=== PATIENT | male | born 1965 | race Caucasian/White ===

== ENCOUNTER 2018-12-05 13:21 | Inpatient (IN) | payer OTHER ==
[~2018-12-05] VITALS: Ht 152.4 cm; Wt 62.2 kg
--- NOTE | 2018-12-05 14:12 | NUR ---
PT PRESENTS TO ED WITH LEFT FOOT PAIN S/P INJURING HIS FOOT AT WORK ON 11/24/18. PT STATES THAT HE SAW HIS PMD, "THEY TOLD ME MY FOOT WAS BROKEN AND THAT IT WAS TOO SWOLLEN TO PERFORM SURGERY". PT STATES THAT HE COULD NOT "HANDLE THE PAIN" ANY MORE. PT'S LEFT FOOT IS SWOLLEN WITH ECCHYMOSIS TO HIS TOES. PT STATES THAT HE CANNOT FEEL HIS LAST 3 TOES, UPON CHECKING CAP REFILL ON EACH TOE, PT REPORTS FEELING PAIN. PT IS AAOX4, RESP E/U, NAD NOTED. AWAITING MSE. PT GIVEN "WORKER'S COMP" FORM.
--- NOTE | 2018-12-05 14:20 | NUR ---
PT REPORTS THAT HE ALREADY FILLED OUT A WORKER'S COMP FORM AT THE TIME OF THE INJURY, ON 11/24/18
--- NOTE | 2018-12-05 16:52 | NUR ---
RESIDENT AT BEDSIDE.
--- NOTE | 2018-12-05 17:58 | NUR ---
PT IS AWAKE, AAOX4, RESP E/U. VERBALIZED UNDERSTANDING OF CONTINUATION OF CARE.
--- NOTE | 2018-12-05 18:32 | NUR ---
PT MEDICATED PER ORDER, PT VERBALIZED UNDERSTANDING OF MEDICATION PRIOR TO ADMINISTRATION. PT IS AWAKE AND ALERT, RESP E/U, CALL LIGHT IN REACH. NAD NOTED.
--- NOTE | 2018-12-05 19:22 | NUR ---
RESIDENT AT BEDSIDE. PT CONVERSING APPROPRIATELY, NAD NOTED.
[2018-12-05] MEDS ORDERED: METFORMIN HYDR500 M1 PO (19:44)
--- NOTE | 2018-12-05 19:53 | NUR ---
REPORT CALLED TO ENTRY MANAGER JIMMY TO ASSUME CARE FOR PT.
--- NOTE | 2018-12-05 20:03 | NUR ---
RECEIVED PT FROM ED VIA LATRICIA, CAME IN DUE TO LEFT FOOT PAIN X11 DAYS. AAOX4. DENIES HEADACHE/DIZZINESS. NO SOB NOTED, LUNG SOUNDS CTA. DENIES CHEST PAIN/PRESSURE. DENIES ABDOMINAL DISCOMFORT. BOWEL SOUNDS ACTIVE. VOIDS. ABLE TO MOVE TOES ON THE LLE. W/ SPLINT COVERED W/ RADHA BANDAGE ON LLE. MILD SWELLING NOTED ON THE LEFT TOES. DENIES NUMBNESS/TINGLING SENSATION. IV SITE PATENT AND INTACT. SIDE RAILS UPX2. CALL LIGHT ON REACH. CRUTCHES AT BEDSIDE. ENDORSED TO PRIMARY NURSE YURY FOR CONTINUITY OF CARE
--- NOTE | 2018-12-05 20:08 | NUR ---
PT TAKEN TO MED SURG FLOOR BY EMT ADRIANNE, VIA JAMAL. PT VERBALIZED UNDERSTANDING OF CONTINUATION OF CARE. PT IS AWAKE, AAOX4, RESP E/U, NAD NOTED.
[2018-12-05 20:10] VITALS: BP 133/73
[2018-12-05 20:25] VITALS: Ht 152.4 cm; Wt 62.2 kg
--- NOTE | 2018-12-06 00:40 | NUR ---
PT ASLEEP COMFORTABLY IN BED. NO ACUTE DISTRESS NOTED. EVEN AND UNLABORED RESPIRATIONS ON RA. IV PATENT AND INTACT RUNNING FLUIDS PER EMAR. BED IN LOWEST POSITION. SIDE RAILS UPX2. CALL LIGHT WITHIN REACH. WILL CONTINUE TO MONITOR.
[2018-12-06 05:29] VITALS: BP 119/56
[2018-12-06 06:22] LABS: BASOPHIL % 0.4 % (0-2); PLATELET COUNT 215 x10^3mcL (130-400); RED CELL DISTRIBUTION WIDTH 13.4 % (11.5-14.5)
[2018-12-06 06:29] LABS: microscopic required? NO
--- NOTE | 2018-12-06 06:44 | NUR ---
PT SLEPT COMFORTABLY IN INTERVALS THROUGHOUT THE SHIFT. NO ACUTE CHANGES NOTED. ALL NEEDS TENDED TO AND MET. ALL SCHEDULED MEDICATIONS GIVEN. IV PATENT AND INTACT RUNNING FLUIDS PER EMAR. C/O BLE PAIN MEDICATED PER EMAR. SPLINT AND RADHA WRAP APPLIED TO LLE. CRUTCHES AT BEDSIDE. BED IN LOWEST POSITION. SIDE RAILS UPX2. CALL LIGHT WITHIN REACH. WILL ENDORSE TO ONCOMING SHIFT.
[2018-12-06 07:13] LABS: CALCIUM 8.3 mg/dL (8.5-10.1); CARBON DIOXIDE 28.5 mmol/L (21-32); CHLORIDE SERUM 105 mmol/L (98-107); CREATININE SERUM 1.1 mg/dL (0.7-1.3); GFR1 > 60 mL/min; GLUCOSE SERUM 141 mg/dL (74-106); MAGNESIUM 1.9 mg/dL (1.8-2.4); PHOSPHOROUS 3.8 mg/dL (2.5-4.9); POTASSIUM SERUM 4.1 mmol/L (3.5-5.1); SODIUM SERUM 139 mmol/L (136-145)
[2018-12-06 07:14] LABS: AMPHETAMINE QUAL UR NONE DETECTED (See below)
--- NOTE | 2018-12-06 07:30 | NUR ---
RC'D PT RESTING IN BED WITH NO APPARENT S/S OF DISTRESS. A/A/O/X4, SPEECH CLEAR AND APPROPRIATE. DENIES TERESA/DIZZINESS. MEDUSRG. PT DENIES CP. PALP PULSES, EDEMA NOTED TO LLE. RESPIRATIONS EQUAL AND UNLABORED. LUNGS CTA. ON RA, DENIES SOB. ABDOMEN SOFT AND NONTENDER. ACTIVE BS. DENIES N/V. VOIDS FREEY, DENIES BURNING. GENERALIZED WEAKNESS. LLE LIMTIED ROM, DRESSING IN PLACE. CRUTCHES AT BEDSIDE. PT DENIES PAIN AT THIS TIME. IV PATENT AND INTACT. BED IN LOW POSITION. CALL LIGHT IN REACH. WILL CONT TO MONITOR
[2018-12-06 07:47] LABS: urine erythrocyte NEGATIVE (NEGATIVE)
[2018-12-06 09:18] VITALS: BP 108/61
--- NOTE | 2018-12-06 09:34 | NUR ---
REPORT GIVEN TO KENIA OR NURSE. UPDATED ON PT CURRENT STATUS. ALL QUESTIONS AND CONCERNS ADDRESSED. WILL CONT TO MONITOR
--- NOTE | 2018-12-06 10:12 | NUR ---
PT RESTING IN BED WITH NO APPARENT SIGNS OF DISTRESS. RESPIRATIONS EQUAL AND UNLABORED. ON RA, PT DENIES SOB. PT DENIES PAIN AT THIS TIME. LLE ELEVATED ON PILLOW. BED IN LOWEST POSITION. CALL LIGHT IN REACH. WILL CONT TO MONITOR
--- NOTE | 2018-12-06 11:34 | NUR ---
PT TAKEN DOWN TO OR FOR PROCEDURE. TELE NOTIFIED AND MADE AWARE
--- NOTE | 2018-12-06 15:17 | NUR ---
PT BACK FROM SURGERY S/P LLE ORIF, DRESSING CDI. RESPIRATIONS EQUAL AND UNLABORED. ON RA, DENIES SOB. PT REPORTS PAIN 2/10. VITAL SIGNS STABLE, FOLLOWED: HR 70, O2 97% ON RA, RR 14, BP 115/65, T 97.7. BED IN LOW POSITION. CALL LIGHT IN REACH. WILL CONT TO MONITOR
--- NOTE | 2018-12-06 17:09 | NUR ---
PT C/O OF LLE PAIN 11/14, MEDICATED PER EMAR. PT DOES NOT WANT ICE BEHIND KNEE AT THIS TIME. VSS. BED IN LOW POSTION. CALL LIGHT IN REACH. WILL CONT TO MONITOR
--- NOTE | 2018-12-06 17:26 | NUR ---
PT RESTING IN BED WITH NO APPARENT S/S OF DISTRESS. MEDSURG. PT DENIES CP. RESPIRATIONS EQUAL AND UNLABORED. ON RA, DENIES SOB. ABDOMEN SOFT ANDF NONTENDER. PT USES URINAL TO VOID. LIMITED ROM TO LLE. NON WEIGHT BEARING AT THIS TIME. PT S/P ORIF LLE DRESSING CDI. LLE ELEVATED ON PILLOW. PT EDUCATED ON IMPORTANCE OF KEEPING C/D AND NOT PUTTING WEIGHT ON LLE. PT VERBALIZED UNDERSTANDING. IV PATENT AND INTACT. BED IN LOW POSITION. CALL LIGHT IN REACH. WILL ENDORSE TO BUSINESS SUPPORT RN
[2018-12-06 17:41] VITALS: BP 115/68
[2018-12-06 18:43] LABS: BASOPHIL % 0.3 % (0-2); PLATELET COUNT 254 x10^3mcL (130-400)
[2018-12-06 18:54] LABS: CALCIUM 8.3 mg/dL (8.5-10.1); CARBON DIOXIDE 26.7 mmol/L (21-32); CHLORIDE SERUM 103 mmol/L (98-107); GFR1 > 60 mL/min; GLUCOSE SERUM 188 mg/dL (74-106); POTASSIUM SERUM 4.4 mmol/L (3.5-5.1); SODIUM SERUM 139 mmol/L (136-145)
--- NOTE | 2018-12-06 19:35 | NUR ---
TEMI FROM [facility] WAS ABLE TO SPEAK WITH PATIENT REGARDING HIS CONCERNS ABOUT BEING AT HOME ALONE AND NEEDING SOME HELP WHEN HE IS DISCHARGED HOME. TEMI WAS ABLE TO ADDRESS HIS CONCERNS. PER TEMI, TOMORROW, [facility] NEEDS TO SPEAK WITH HIM REGARDING HIS INSURANCE, TO HELP HIM FIND A PCP/HIS PCP.
--- NOTE | 2018-12-06 19:43 | NUR ---
PT. AWAKE, ALERT, ORIENTED X4. DENIES HEADACHE OR DIZZINESS. SPEECH CLEAR, CONVERSATION APPROPRIATE. BREATH SOUNDS CLEAR THROUGHOUT LUNG MORALES, RESP. EVEN, UNLABORED. NO SOB NOTED. PT. ON RA. ABD. SOFT AND FLAT, BOWEL SOUNDS ACTIVE. DENIES ABD. PAIN, DENIES NAUSEA. S/P ORIF TO LLE. SOFT CAST DRSG IN-SITU. NO DRAINAGE NOTED. SOME SWELLING TO LLE. ABLE TO WIGGLE TOES. PT. MEDICATED FOR PAIN BY DAY NURSE. PAIN LEVEL 10/10 PER PT. WILL MONITOR. CALL LIGHT WITHIN REACH.
[2018-12-06 21:48] VITALS: BP 109/65
--- NOTE | 2018-12-06 22:55 | NUR ---
PT. C/O PAIN, PT. SAT UP TO USE URINAL AT BEDSIDE. PAIN LEVEL NOW 10/10. PRN NORCO GIVEN AT THIS TIME. MORPHINE NOT MAGALI AT THIS TIME. WILL MONITOR.
--- NOTE | 2018-12-06 23:43 | NUR ---
PT. STILL HAVING 10/10 PAIN AFTER RECEIVING PRN NORCO. PT. LLE ELEVATED AND ICED PER DOCTOR'S ORDER. PRN MORPHINE IVP GIVEN AT THIS TIME. WILL MONITOR. CALL LIGHT REMAINS WITHIN REACH.
--- NOTE | 2018-12-07 02:27 | NUR ---
PT. W/ EYES CLOSED, SLEEPING. WILL CONTINUE TO MONITOR. CALL LIGHT REMAINS WITHIN REACH.
[2018-12-07 05:48] VITALS: BP 116/63
[2018-12-07 06:29] LABS: CALCIUM 8.4 mg/dL (8.5-10.1); CARBON DIOXIDE 28.1 mmol/L (21-32); CHLORIDE SERUM 103 mmol/L (98-107); CREATININE SERUM 1.1 mg/dL (0.7-1.3); GFR1 > 60 mL/min; GLUCOSE SERUM 171 mg/dL (74-106); MAGNESIUM 1.9 mg/dL (1.8-2.4); PHOSPHOROUS 4.5 mg/dL (2.5-4.9); POTASSIUM SERUM 4.3 mmol/L (3.5-5.1); SODIUM SERUM 139 mmol/L (136-145)
[2018-12-07 06:35] LABS: BASOPHIL % 0.2 % (0-2); PLATELET COUNT 224 x10^3mcL (130-400); RED CELL DISTRIBUTION WIDTH 13.6 % (11.5-14.5)
--- NOTE | 2018-12-07 06:52 | NUR ---
DR. GROVES ROUNDED AND SPOKE WITH PT. STATED THAT PT. WOULD BE HERE FOR ANOTHER DAY TO ADDRESS CONCERNS WITH [employer] TECHNOLOGIST REGARDING PCP CARE AND FOLLOW UP. PT. REMINDED TO AVOID PLACING PRESSURE ON LLE AND AVOID WALKING ON LLE. IVF INFUSING, SITE REMAINS INTACT. PT. GIVEN MORPHINE IVP ORDERED FOR 3/10 PAIN LEVEL. WILL ENDORSE PT. CARE TO INCOMING NURSE.
--- NOTE | 2018-12-07 07:15 | NUR ---
REPORT RCD FROM [facility]. PATIENT AWAKE, NO DISTRESS NOTED. LEFT LOWER LEG HAS CAST, CDI, ELEVATED ON PILLOW, PAIN 4/10. NS 10 ML/HR TO RAC WITHOUT COMPLICATIONS. BED LOW, CALL LIGHT WITHIN REACH. WILL MONITOR.
--- NOTE | 2018-12-07 08:34 | NUR ---
PHYSICAL THERAPY WORKING WITH PATIENT ON USE OF CRUTCHES, PAIN TOLERABLE AT THIS TIME. WILL MONITOR.
[2018-12-07 08:52] VITALS: BP 117/73
--- NOTE | 2018-12-07 08:55 | NUR ---
PATIENT FINISHED WORKING WITH PHYSICAL THERAPY WITH CRUTCHES AND NOW COMPLAINING OF 10/10 PAIN. NORCO GIVEN PER MAY. PATIENT WITH LLE ELEVATED ON 2 PILLOWS. PROVIDED ICE PACK TO BACK OF KNEE, WILL MONITOR. SHIFT ASSESSMENT PERFORMED AND DOCUMENTED. CMS INTACT TO LEFT TOES, ABLE TO WIGGLE TOES SLIGHTLY, EDEMA NOTED TO TOES. BED LOW, CALL LIGHT WITHIN REACH. WILL MONITOR.
--- NOTE | 2018-12-07 11:04 | NUR ---
PATIENT TALKING ON TELEPHONE, NO ACUTE DISTRESS. WILL MONITOR.
--- NOTE | 2018-12-07 12:15 | NUR ---
MD ROUNDS WITH DR. CUBA, MEDICAL TEAM, [facility] NURSE, ATTDG NURSE. PATIENT REPORTING 4/10 PAIN TO LLE, WILL MEDICATE PER MAR WHEN DUE. LLE ELEVATED ON 2 PILLOWS, PATIENT RESTING, IN NO DISTRESS.
--- NOTE | 2018-12-07 14:07 | NUR ---
PATIENT REPORTS DOING OKAY. PROVIDED WITH ICE BEHIND KNEE. LLE ELEVATED ON 2 PILLOWS. NO OTHER NEEDS AT THIS TIME.
[2018-12-07 15:57] VITALS: BP 101/61
--- NOTE | 2018-12-07 16:45 | NUR ---
PATIENT COMPLAINING OF 9/10 PAIN TO LLE. DISCUSSED PAIN CONTROL OPTIONS. PATIENT CHOOSES NORCO AT THIS TIME, GIVEN PER MAY. ICE PACK PLACED BEHIND KNEE, LLE ELEVATED ON 2 PILLOWS. NO OTHER NEEDS AT THIS TIME.
--- NOTE | 2018-12-07 19:11 | NUR ---
PATIENT LYING WITH LLE ELEVATED ON 2 PILLOWS, IN GOOD SPIRITS. FAMILY AT BEDSIDE. IV TO RAC WITHOUT COMPLICATIONS. BED LOW, CALL LIGHT WITHIN REACH. PATIENT NONWEIGHTBEARING, CRUTCHES AT BEDSIDE. CARE ENDORSED.
--- NOTE | 2018-12-07 19:38 | NUR ---
PT. SITTING UP IN BED WITH LLE ELEVATED ABOVE LEVEL OF HEART. FAMILY AT BEDSIDE. PT. ORIENTED X4. DENIES HEADACHE, NO DIZZYNESS. BREATH SOUNDS CLEAR THROUGHOUT LUNG MORALES, RESP. EVEN, UNLABORED. NO SOB, PT. ON RA. ABD. SOFT AND FLAT, BOWEL SOUNDS ACTIVE. RLE PEDAL PULSE STRONG. SOFT CAST DRSG IN-SITU TO LLE. UNABLE TO ACCESS PEDAL PULSE AT THIS TIME DUE TO CAST. IVF NS AT 10CC/HR. CALL LIGHT WITHIN REACH.
[2018-12-07 21:00] VITALS: BP 116/62
--- NOTE | 2018-12-07 22:40 | NUR ---
PT. C/O PAIN, 810 IN LLE. PRN MORPHINE GIVEN ORDERED. PT.'S LLE REPOSITIONED AND MADE COMFORTABLE. ICE PACKS X2 ALSO PLACED BEHIND PT.'S KNEE/LEG ORDERED. WILL MONITOR.
--- NOTE | 2018-12-08 02:00 | NUR ---
PT. AWAKENED, C/O PAIN IN LLE. PRN NORCO GIVEN ORDERED. WILL MONITOR.
[2018-12-08 05:25] VITALS: BP 100/64
--- NOTE | 2018-12-08 06:05 | NUR ---
PT. AWAKE, USING URINAL AT BEDSIDE. C/O PAIN LLE, 07/14. PRN NORCO GIVEN. WILL MONITOR.
--- NOTE | 2018-12-08 07:40 | NUR ---
RC'D PT RESTING IN BED WITH NO APPARENT S/S OF DISTRESS. A/A/O/X4, SPEECH CLEAR AND APPROPRIATE. PT DENIES TERESA/DIZZINESS. MEDSURG. PT DENIES CP. PALP PUKLSES, EDEMA NOTED TO LLE. RESPIRATIONS EQUAL AND UNLABORED. LUNGS CTA. ON RA, DENIES SOB. ABDOMEN SOFT AND NONTENDER. ACTIVE BS. DENIES N/V. VOIDS FREELY, DENIES BURNING. GENERALIZED WEAKNESS. LLE NWB, CRUTCHES AT BEDSIDE. S/P LLE ORIF, DRESSING CDI. LLE ELEVATED. PT DENIES PAIN AT THIS TIME. IV PATENT AND INTACT. BED IN LOW POSITION. CALL LIGHT IN REACH. WILL CONT TO MONITOR
[2018-12-08 07:51] LABS: BASOPHIL % 0.4 % (0-2); PLATELET COUNT 222 x10^3mcL (130-400); RED CELL DISTRIBUTION WIDTH 13.4 % (11.5-14.5)
[2018-12-08 07:57] LABS: CALCIUM 8.2 mg/dL (8.5-10.1); CARBON DIOXIDE 28.7 mmol/L (21-32); CHLORIDE SERUM 102 mmol/L (98-107); CREATININE SERUM 1.1 mg/dL (0.7-1.3); GFR1 > 60 mL/min; GLUCOSE SERUM 125 mg/dL (74-106); MAGNESIUM 1.7 mg/dL (1.8-2.4); PHOSPHOROUS 4.1 mg/dL (2.5-4.9); POTASSIUM SERUM 3.8 mmol/L (3.5-5.1); SODIUM SERUM 139 mmol/L (136-145)
[2018-12-08 08:30] VITALS: BP 120/70
--- NOTE | 2018-12-08 10:10 | NUR ---
PT C/O OF PAIN TO LLE, MEDICATED PER EMAR. RESPIRATIONS EQUAL AND UNLABORED. ON RA, DENIES SOB. BED IN LOWEST POSITION. CALL LIGHT IN REACH. WILL CONT TO MONITOR
[2018-12-08 12:12] VITALS: BP 113/53
[2018-12-08] MEDS ORDERED: APAP/HYDROCODON1 T13 PO (12:16)
--- NOTE | 2018-12-08 12:49 | NUR ---
PT RESTING IN BED WITH NO APPARENT SIGNS OF DISTRESS. RESPIRATIONS EQUAL AND UNLABORED. ON RA, DENIES SOB. PT REPORTS TOLERABLE PAIN AT THIS TIME. BED IN LOWEST POSITION. CALL LIGHT IN REACH. WILL CONT TO MONITOR
[2018-12-08 13:36] VITALS: BP 113/53
--- NOTE | 2018-12-08 14:25 | NUR ---
PT MEDICATED WITH PAIN MEDS PER EMAR, PT C/O OF LLE 08/14 PAIN. RESPIRATIONS EQUAL AND UNLABORED. BED IN LOWEST POSITION. CALL LIGHT IN REACH. WILL CONT TO MONMITOR
--- NOTE | 2018-12-08 15:50 | NUR ---
PT RESTING IN BED. DENIES EXCESSIVE PAIN. LLE ELEVATED. BED IN LOW POSITION. CALL LIGHT IN REACH. WILL CONT TO MONITOR
[2018-12-08 16:32] VITALS: BP 113/65
--- NOTE | 2018-12-08 17:50 | NUR ---
PT RESTING IN BED WITH NO APPARENT SIGNS OF DISTRESS. MEDSURG. PT DENIES CP. RESPIRATIONS EQUAL AND UNLABORED. ON RA, DENIES SOB. LLE DRESSING CDI, ELEVATED ON PILLOW. LLE NWB, CRUTCHES AT BEDSIDE. NO ACUTE SKIN CHANGES NOTED. PT DENIES EXCESSIVE PAIN AT THIS TIME. IV PATENT AND INTACT. BED IN LOW POSITION. CALL LIGHT IN REACH. WILL ENDORSE TO [employer]ING [employer] FOREMAN RN
--- NOTE | 2018-12-08 18:44 | NUR ---
PT PROVIDED WITH DC HOME INSTRUCTIONS. PT GIVEN MEDICATION EDUCATION. PT INFORMED THAT MEDICATIONS ARE AVAILABLE AT PHARMACY THAT PT PROVIDED TO MD. PT INFORMED TO TAKE MEDICATIONS ORDERED BY D. PT INFORMED IF WORSENING S/S WERE TO ARISE TO RETURN TO ED OR REPORT TO PCP. PT INFORMED LLE TO MAINTAIN NWB. CRUTCHES AT BEDSIDE. WHEELCHAIR AND BSC TO BE DELIVERED TO HOME TOMORROW. PT VERBALIZED UNDERSTANDING OF INSTRUCTIONS. IV REMOVED AT THIS TIME, CATHETER INTACT. NO REDNESS/INFLAMMATION/DISCOMFORT NOTED. PT AWAITING RIDE AND TO BE TAKEN DOWN TO LOBBY WITH ALL PERSONAL BELONGIGNS IN HAND FREE OF ANY APPARENT SIGNS OF DISTRESS.
== END 2018-12-08 19:03 | disposition home or self-care (01) | DRG 505 ==
LOC: ED 13:21 → MU 18:46
PROVIDERS: Podiatrist Foot & Ankle Surgery; ADMIT Internal Medicine
PROC: 0QSP04Z Reposition Left Metatarsal with Internal Fixation Device, Open Approach (ICD-10-PCS; principal; 2018-12-06 12:00)
DX: S92.352A Displaced fracture of fifth metatarsal bone, left foot, initial encounter for closed fracture (principal); S92.332A Displaced fracture of third metatarsal bone, left foot, initial encounter for closed fracture; S92.342A Displaced fracture of fourth metatarsal bone, left foot, initial encounter for closed fracture; E11.65 Type 2 diabetes mellitus with hyperglycemia; F17.210 Nicotine dependence, cigarettes, uncomplicated; W18.39XA Other fall on same level, initial encounter; Y93.89 Activity, other specified; Y92.89 Other specified places as the place of occurrence of the external cause; Z79.84 Long term (current) use of oral hypoglycemic drugs; Z68.25 Body mass index [BMI] 25.0-25.9, adult
CPT/HCPCS: 82962; 97116-GP; C1713; G0378; J0690; J1170; J2175; J2250; J2270; J2405; J2704; J3010; J3490; J7030